=== PATIENT | male | born 1965 | race African-American/Black ===

== ENCOUNTER → 2022-11-03 09:04 | Outpatient (BNVA) | payer OTHER, SELFPAY | PROVIDERS: PCP Physician Assistant; Visit Provider Nurse Practitioner Family | DX: M62.838 Other muscle spasm (principal); M47.22 Other spondylosis with radiculopathy, cervical region; M54.16 Radiculopathy, lumbar region; M47.816 Spondylosis without myelopathy or radiculopathy, lumbar region; M25.562 Pain in left knee; M48.02 Spinal stenosis, cervical region; M51.36 Other intervertebral disc degeneration, lumbar region | CPT/HCPCS: 99202 ==